=== PATIENT | male | born 1975 | race Caucasian/White ===

== ENCOUNTER 2020-02-23 13:44 | Emergency (ER) | payer BC ==
[~2020-02-23] VITALS: Ht 190.5 cm; Wt 139.0 kg
[~2020-02-23 13:44] MED LIST: LIDOcaine 1% W/epiNEPHrine 1:200,000 10ml vial ONE
[2020-02-23 17:21] VITALS: BP 147/101
== END 2020-02-23 17:17 | disposition home or self-care (01) ==
LOC: ER 13:45
DX: S61.212A Laceration without foreign body of right middle finger without damage to nail, initial encounter (principal); S61.214A Laceration without foreign body of right ring finger without damage to nail, initial encounter; W26.8XXA Contact with other sharp object(s), not elsewhere classified, initial encounter; Y93.89 Activity, other specified; Y92.89 Other specified places as the place of occurrence of the external cause; Y99.8 Other external cause status
CPT/HCPCS: 12002; 12042; 99283; 99284

== ENCOUNTER 2021-05-08 20:51 | Inpatient (IN) | payer BC ==
[~2021-05-08] VITALS: Ht 193 cm; Wt 170.4 kg
[2021-05-08] MEDS ORDERED: piperacillin/tazo 3.375gm/50ml 50 ML IV ONE (22:10)
[2021-05-08] MEDS ORDERED: vancomycin/NS 1 GM ADD-VANTAGE 250 ML IV ONE (22:10)
[2021-05-08] MEDS ORDERED: TETanus/Pertussis (Acell)/Diphther VAC/PF (Tdap-Adult) 0.5ml syringe IMVAC ONE (22:10)
[2021-05-08] MEDS ORDERED: NO HOME MEDS (22:39)
[2021-05-08 22:42] LABS: BASOPHILS # (AUTO) 0.1 X10'3 (0-0.2); BASOPHILS % (AUTO) 0.8 % (0-1); EOSINOPHILS # (AUTO) 0.2 X10'3 (0-0.9); EOSINOPHILS % (AUTO) 1.3 % (0-6); HEMATOCRIT 35.9 % (42.0-52.0); HEMOGLOBIN 12.6 g/dl (14.0-17.9); LYMPHOCYTES # (AUTO) 2.2 X10'3 (1.1-4.8); LYMPHOCYTES % (AUTO) 17.3 % (21-51); MEAN CORPUSCULAR HEMOGLOBIN 32.2 PG (27.0-31.0); MEAN PLATELET VOLUME 7.6 FL (7.4-10.4); MONOCYTES # (AUTO) 1.2 X10'3 (0-0.9); MONOCYTES % (AUTO) 9.6 % (2-12); NEUTROPHILS # (AUTO) 9.1 X10'3 (1.8-7.7); PLATELET COUNT 381 X10'3 (140-440); RED CELL DISTRIBUTION WIDTH 14.1 % (11.5-14.5); WHITE BLOOD COUNT 12.8 X10'3 (4.5-11.0)
[2021-05-08 22:52] LABS: ALANINE AMINOTRANSFERASE 21 U/L (12-78); ALBUMIN 3.6 G/DL (3.4-5.0); ALBUMIN/GLOBULIN RATIO 0.7 (1.1-1.5); ALKALINE PHOSPHATASE 98 IU/L (46-116); ANION GAP 10 (8-16); ASPARTATE AMINO TRANSFERASE 19 U/L (10-37); BILIRUBIN,TOTAL 0.7 MG/DL (0.1-1.0); BLOOD UREA NITROGEN 15 MG/DL (7-18); BUN/CREATININE RATIO 12.9 (5.4-32.0); CHLORIDE 104 MMOL/L (99-107); CREATININE 1.16 MG/DL (0.60-1.10); GLUCOSE 97 MG/DL (70-104); MAGNESIUM 2.4 MG/DL (1.5-2.4); POTASSIUM 3.3 MMOL/L (3.5-5.1); SODIUM 142 MMOL/L (135-145); TOTAL CARBON DIOXIDE 27.6 MMOL/L (24-32); TOTAL PROTEIN 8.8 G/DL (6.4-8.2); eGFR 68 ML/MIN
[2021-05-09] MEDS ORDERED: potassium Cl 20 mEq SR tablet PO PRN (02:55)
[2021-05-09] MEDS ORDERED: magnesium hydroxide 30ml (MOM) UD suspension PO PRN (02:55)
[2021-05-09] MEDS ORDERED: acetaminophen 325mg tablet PO PRN (02:55)
[2021-05-09] MEDS ORDERED: potassium Cl 40MEQ/1/2NS 520ml 520 ML IV PRN ×2 (02:55)
[2021-05-09] MEDS ORDERED: ondansetron/PF 4mg/2ml inj IV PRN (02:55)
[2021-05-09] MEDS ORDERED: HYDROcodone/acetaminophen 5mg/325mg tablet PO PRN (02:55)
[2021-05-09] MEDS ORDERED: mag hydrox/Alum hydrox/simeth 30ml oral suspension PO PRN (02:55)
[2021-05-09] MEDS ORDERED: vancomycin/NS 1 GM ADD-VANTAGE 250 ML IV SCH (06:00)
--- NOTE | 2021-05-09 06:43 | NUR ---
Pt. was alert and oriented with no stated needs at this time. Call light within reach.
[2021-05-09] MEDS: vancomycin/NS 1 GM ADD-VANTAGE 250 ML IV SCH ×2 (07:06→14:54)
[2021-05-09] MEDS: heparin, porcine 5000 units/ml vial SQ SCH ×2 (07:08→20:00)
[2021-05-09] MEDS: docusate sod 100mg capsule PO SCH ×2 (07:08→21:10)
[2021-05-09] MEDS: potassium Cl 20 mEq SR tablet PO PRN ×2 (07:12→16:42)
[2021-05-09] MEDS: K and/or MAG REPLACEMENT MC SCH ×2 (08:00→20:00)
--- NOTE | 2021-05-09 09:47 | NUR ---
PATIENT TO MRI.
[2021-05-09] MEDS: piperacillin/tazo 3.375gm/50ml 50 ML IV SCH ×2 (10:30→16:40)
--- NOTE | 2021-05-09 10:49 | NUR ---
VISITOR AT BEDSIDE.
--- NOTE | 2021-05-09 12:50 | NUR ---
DR. BURDEN AT BEDSIDE.
--- NOTE | 2021-05-09 12:54 | NUR ---
RIGHT FOOT WOUND PICTURE TAKEN.ORTHO CONSULT PER DR. BURDEN DUE TO OSTEOMYLELITIS.
[2021-05-09] MEDS ORDERED: COVID-19 VACC, MRNA(PFIZER)/PF--BNT162b2 syringe IMVAC ONE (14:35)
[2021-05-09] MEDS ORDERED: GADOTERATE MEGLUMINE 7.5 MMOL/15 ML VIAL IV ONE (15:29)
--- NOTE | 2021-05-09 17:31 | NUR ---
PATIENT PLACED IN A HOSPITAL BED.
--- NOTE | 2021-05-09 20:05 | NUR ---
CMP ORDERED FOR POTASSIUM REPLACEMENT PROTOCOL
[2021-05-09] MEDS: lactobacillus rhamnosus 10,000 MMU CELLS/CAPSULE PO SCH (21:10)
--- NOTE | 2021-05-09 21:14 | NUR ---
Pt was not given potassium as labs have not been drawn today. He recieved potassium PO in the am.
[2021-05-09 21:33] LABS: ALANINE AMINOTRANSFERASE 24 U/L (12-78); ALBUMIN/GLOBULIN RATIO 0.7 (1.1-1.5); ALKALINE PHOSPHATASE 87 IU/L (46-116); ANION GAP 11 (8-16); ASPARTATE AMINO TRANSFERASE 24 U/L (10-37); BILIRUBIN,TOTAL 0.6 MG/DL (0.1-1.0); BLOOD UREA NITROGEN 12 MG/DL (7-18); BUN/CREATININE RATIO 10.1 (5.4-32.0); CALCIUM 8.7 MG/DL (8.5-10.1); CHLORIDE 105 MMOL/L (99-107); CREATININE 1.19 MG/DL (0.60-1.10); GLUCOSE 95 MG/DL (70-104); POTASSIUM 3.9 MMOL/L (3.5-5.1); SODIUM 144 MMOL/L (135-145); TOTAL PROTEIN 7.6 G/DL (6.4-8.2); eGFR 66 ML/MIN
[2021-05-09 22:20] VITALS: BP 132/84
[2021-05-09] MEDS ORDERED: VANCOMYCIN LEVEL IV ONE (22:30)
[2021-05-10] VITALS (19 sets, daily range): BP systolic 122–159; BP diastolic 69–133
[2021-05-10] MEDS: vancomycin/NS 1 GM ADD-VANTAGE 250 ML IV SCH (00:08)
[2021-05-10] MEDS: piperacillin/tazo 3.375gm/50ml 50 ML IV SCH ×3 (02:14→18:21)
--- NOTE | 2021-05-10 06:41 | NUR ---
Patient in room [facility]. I have received report from LEANNA PENDLETON and had the opportunity to ask questions and assume patient care.
[2021-05-10 07:23] LABS: BASOPHILS # (AUTO) 0.1 X10'3 (0-0.2); BASOPHILS % (AUTO) 0.7 % (0-1); EOSINOPHILS # (AUTO) 0.3 X10'3 (0-0.9); EOSINOPHILS % (AUTO) 3.2 % (0-6); HEMATOCRIT 36.1 % (42.0-52.0); HEMOGLOBIN 12.4 g/dl (14.0-17.9); LYMPHOCYTES # (AUTO) 1.5 X10'3 (1.1-4.8); LYMPHOCYTES % (AUTO) 18.2 % (21-51); MEAN CORPUSCULAR HEMOGLOBIN 31.8 PG (27.0-31.0); MEAN CORPUSCULAR HGB CONC 34.4 g/dL (33.0-36.5); MEAN CORPUSCULAR VOLUME 92.7 FL (78-98); MEAN PLATELET VOLUME 7.9 FL (7.4-10.4); MONOCYTES # (AUTO) 0.8 X10'3 (0-0.9); NEUTROPHILS # (AUTO) 5.4 X10'3 (1.8-7.7); NEUTROPHILS % (AUTO) 67.9 % (42-75); PLATELET COUNT 356 X10'3 (140-440); RED BLOOD COUNT 3.89 X10'6 (4.70-6.10); RED CELL DISTRIBUTION WIDTH 14.3 % (11.5-14.5)
[2021-05-10 07:47] LABS: ALANINE AMINOTRANSFERASE 24 U/L (12-78); ALBUMIN 3.1 G/DL (3.4-5.0); ALBUMIN/GLOBULIN RATIO 0.7 (1.1-1.5); ALKALINE PHOSPHATASE 87 IU/L (46-116); ANION GAP 12 (8-16); ASPARTATE AMINO TRANSFERASE 24 U/L (10-37); BILIRUBIN,TOTAL 0.7 MG/DL (0.1-1.0); BLOOD UREA NITROGEN 9 MG/DL (7-18); BUN/CREATININE RATIO 9.2 (5.4-32.0); CALCIUM 9.1 MG/DL (8.5-10.1); CHLORIDE 106 MMOL/L (99-107); CREATININE 0.98 MG/DL (0.60-1.10); GLUCOSE 96 MG/DL (70-104); POTASSIUM 3.7 MMOL/L (3.5-5.1); SODIUM 143 MMOL/L (135-145); TOTAL CARBON DIOXIDE 25.4 MMOL/L (24-32); TOTAL PROTEIN 7.8 G/DL (6.4-8.2); eGFR 83 ML/MIN
[2021-05-10] MEDS: VANCOmycin 1250MG/NS 250ml Bag 250 ML IV SCH ×2 (08:00→16:36)
[2021-05-10] MEDS: heparin, porcine 5000 units/ml vial SQ SCH ×2 (08:00→20:45)
[2021-05-10] MEDS: K and/or MAG REPLACEMENT MC SCH ×2 (08:00→20:00)
[2021-05-10] MEDS: lactobacillus rhamnosus 10,000 MMU CELLS/CAPSULE PO SCH ×2 (08:43→20:59)
[2021-05-10] MEDS: docusate sod 100mg capsule PO SCH ×2 (08:43→20:44)
[2021-05-10] MEDS ORDERED: BUPIVAcaine/PF 2.5mg/ml (0.25%) 10ml vial ONE (10:18)
[2021-05-10] MEDS ORDERED: sevoflurane 250ml liquid IH ONE (10:30)
[2021-05-10] MEDS ORDERED: midazolam 1 mg/ML 2ml injection ONE (10:39)
[2021-05-10] MEDS ORDERED: fentaNYL /PF 50mcg/ml 5ml ampule ONE (10:41)
[2021-05-10] MEDS ORDERED: propofol inj 20 ML IV ONE (10:41)
[2021-05-10] MEDS ORDERED: LIDOcaine 2% (20mg/ml) 5ml vial ONE (10:41)
[2021-05-10] MEDS ORDERED: dexamethasone sod phosphate 4mg/ml inj. ONE (11:29)
--- NOTE | 2021-05-10 11:40 | NUR ---
Received from OR via BED, accompanied by Anesthesiologist RAJESH and report given by Anesthesiolgist. PT DROWSY, OXYGENATING WELL ON 10 LPM O2 VIA MASK,NO RESP DISTRESS NOTED. PT DENIES NAUSEA OR PAIN, HAD R ANKLE BLOCK. BULKY DSG WITH ALEJANDRO BANDAGE TO R FOOT, CDI. VSS.
--- NOTE | 2021-05-10 12:50 | NUR ---
Report called to receiving nurse. Transferred via BED Belongings IN PT ROOM. VSS, TOLERATING PO FLUIDS WELL. NO PAIN YET, PT WILL ASK FOR PAIN MEDS PRN. TRANSFERRED BACK TO ROOM 352 IN STABLE CONDITION. Special Issues communicated to receiving nurse.
[2021-05-10] MEDS: oxyCODONE/APAP 5-325mg tablet PO PRN ×2 (16:36→20:44)
--- NOTE | 2021-05-10 18:34 | NUR ---
Problems reprioritized. Patient report given, questions answered & plan of care reviewed with WILLIAM PENDLETON.
--- NOTE | 2021-05-10 18:35 | NUR ---
Patient in room [facility]. I have received report from LIV PENDLETON and had the opportunity to ask questions and assume patient care.
[2021-05-11] VITALS: BP 129/59
[2021-05-11] MEDS: VANCOmycin 1250MG/NS 250ml Bag 250 ML IV SCH ×2 (00:51→09:43)
[2021-05-11] MEDS: piperacillin/tazo 3.375gm/50ml 50 ML IV SCH ×3 (02:10→16:11)
--- NOTE | 2021-05-11 06:30 | NUR ---
Problems reprioritized. Patient report given, questions answered & plan of care reviewed with SUKHI PENDLETON.
[2021-05-11] MEDS ORDERED: VANCOMYCIN LEVEL IV ONE (07:30)
[2021-05-11 08:00] VITALS: BP 130/92
[2021-05-11] MEDS: K and/or MAG REPLACEMENT MC SCH ×2 (08:00→20:00)
[2021-05-11] MEDS: lactobacillus rhamnosus 10,000 MMU CELLS/CAPSULE PO SCH ×2 (09:43→20:04)
[2021-05-11] MEDS: oxyCODONE/APAP 5-325mg tablet PO PRN ×3 (09:43→19:55)
[2021-05-11] MEDS: heparin, porcine 5000 units/ml vial SQ SCH ×2 (09:44→19:56)
[2021-05-11] MEDS: docusate sod 100mg capsule PO SCH ×2 (09:45→19:55)
[2021-05-11 10:05] LABS: BASOPHILS % (AUTO) 0.2 % (0-1); EOSINOPHILS % (AUTO) 0.2 % (0-6); HEMATOCRIT 37.5 % (42.0-52.0); HEMOGLOBIN 13.1 g/dl (14.0-17.9); LYMPHOCYTES # (AUTO) 1.5 X10'3 (1.1-4.8); MEAN CORPUSCULAR HEMOGLOBIN 32.2 PG (27.0-31.0); MEAN CORPUSCULAR HGB CONC 34.9 g/dL (33.0-36.5); MEAN CORPUSCULAR VOLUME 92.2 FL (78-98); MEAN PLATELET VOLUME 7.2 FL (7.4-10.4); MONOCYTES # (AUTO) 0.5 X10'3 (0-0.9); MONOCYTES % (AUTO) 5.5 % (2-12); NEUTROPHILS # (AUTO) 7.7 X10'3 (1.8-7.7); NEUTROPHILS % (AUTO) 79.1 % (42-75); PLATELET COUNT 413 X10'3 (140-440); RED BLOOD COUNT 4.07 X10'6 (4.70-6.10); RED CELL DISTRIBUTION WIDTH 14.2 % (11.5-14.5); WHITE BLOOD COUNT 9.8 X10'3 (4.5-11.0)
[2021-05-11 10:20] LABS: ALANINE AMINOTRANSFERASE 26 U/L (12-78); ALBUMIN/GLOBULIN RATIO 0.6 (1.1-1.5); ALKALINE PHOSPHATASE 85 IU/L (46-116); ANION GAP 10 (8-16); ASPARTATE AMINO TRANSFERASE 18 U/L (10-37); BILIRUBIN,TOTAL 0.3 MG/DL (0.1-1.0); BLOOD UREA NITROGEN 10 MG/DL (7-18); BUN/CREATININE RATIO 8.5 (5.4-32.0); CALCIUM 9.1 MG/DL (8.5-10.1); CHLORIDE 105 MMOL/L (99-107); CREATININE 1.17 MG/DL (0.60-1.10); GLUCOSE 180 MG/DL (70-104); POTASSIUM 3.5 MMOL/L (3.5-5.1); SODIUM 143 MMOL/L (135-145); TOTAL CARBON DIOXIDE 27.6 MMOL/L (24-32); TOTAL PROTEIN 7.9 G/DL (6.4-8.2); eGFR 67 ML/MIN
[2021-05-11 11:00] VITALS: BP 136/83
--- NOTE | 2021-05-11 15:09 | NUR ---
PAGER ID: [phone] MESSAGE: [phone] Susan Capps is cleared by Dr. Decker for discharge home. Mary Carmen [phone]
[2021-05-11 18:00] VITALS: BP 144/86
--- NOTE | 2021-05-11 18:30 | NUR ---
Patient in room [facility]. I have received report from Almaz PENDLETON and had the opportunity to ask questions and assume patient care.
--- NOTE | 2021-05-11 18:52 | NUR ---
promotional table spacer promotional table spacer Page Sent promotional table spacer PAGER ID: [phone] MESSAGE: [phone] Jefry is anxious to go home. Surgeon has okayed, but with Po ABX. please call Kerri Dougherty02Estefania ferrell (107 character message out of a maximum of [phone]) Close [X] Send Another Page Thank you for visiting [facility] promotional table spacer promotional table spacer
[2021-05-12] VITALS: BP 134/87
[2021-05-12] MEDS: piperacillin/tazo 3.375gm/50ml 50 ML IV SCH ×2 (01:36→07:25)
--- NOTE | 2021-05-12 06:15 | NUR ---
Patient in room [facility]. I have received report from Kerri and had the opportunity to ask questions and assume patient care.
--- NOTE | 2021-05-12 06:30 | NUR ---
Problems reprioritized. Patient report given, questions answered & plan of care reviewed with Debra PENDLETON.
--- NOTE | 2021-05-12 06:42 | NUR ---
Patient in room [facility]. I have received report from Kerri PENDLETON and had the opportunity to ask questions and assume patient care.
[2021-05-12 06:44] LABS: BASOPHILS # (AUTO) 0.1 X10'3 (0-0.2); BASOPHILS % (AUTO) 1.1 % (0-1); EOSINOPHILS # (AUTO) 0.2 X10'3 (0-0.9); EOSINOPHILS % (AUTO) 1.7 % (0-6); HEMATOCRIT 37.3 % (42.0-52.0); HEMOGLOBIN 12.6 g/dl (14.0-17.9); LYMPHOCYTES # (AUTO) 2.3 X10'3 (1.1-4.8); LYMPHOCYTES % (AUTO) 26.5 % (21-51); MEAN CORPUSCULAR HEMOGLOBIN 31.3 PG (27.0-31.0); MEAN CORPUSCULAR HGB CONC 33.6 g/dL (33.0-36.5); MEAN CORPUSCULAR VOLUME 93.2 FL (78-98); MEAN PLATELET VOLUME 7.6 FL (7.4-10.4); MONOCYTES # (AUTO) 1.2 X10'3 (0-0.9); MONOCYTES % (AUTO) 13.2 % (2-12); NEUTROPHILS # (AUTO) 5.1 X10'3 (1.8-7.7); NEUTROPHILS % (AUTO) 57.5 % (42-75); PLATELET COUNT 397 X10'3 (140-440); RED BLOOD COUNT 4.01 X10'6 (4.70-6.10); WHITE BLOOD COUNT 8.8 X10'3 (4.5-11.0)
[2021-05-12 07:00] VITALS: BP 141/84
[2021-05-12 07:28] LABS: ALANINE AMINOTRANSFERASE 34 U/L (12-78); ALBUMIN 2.8 G/DL (3.4-5.0); ALBUMIN/GLOBULIN RATIO 0.6 (1.1-1.5); ALKALINE PHOSPHATASE 75 IU/L (46-116); ANION GAP 10 (8-16); ASPARTATE AMINO TRANSFERASE 31 U/L (10-37); BILIRUBIN,TOTAL 0.3 MG/DL (0.1-1.0); BLOOD UREA NITROGEN 13 MG/DL (7-18); CALCIUM 9.1 MG/DL (8.5-10.1); CHLORIDE 109 MMOL/L (99-107); GLUCOSE 86 MG/DL (70-104); POTASSIUM 3.7 MMOL/L (3.5-5.1); SODIUM 146 MMOL/L (135-145); TOTAL CARBON DIOXIDE 26.9 MMOL/L (24-32); TOTAL PROTEIN 7.2 G/DL (6.4-8.2); eGFR 60 ML/MIN
[2021-05-12] MEDS: heparin, porcine 5000 units/ml vial SQ SCH (08:57)
[2021-05-12] MEDS: docusate sod 100mg capsule PO SCH (08:57)
[2021-05-12] MEDS: lactobacillus rhamnosus 10,000 MMU CELLS/CAPSULE PO SCH (08:57)
[2021-05-12] MEDS ORDERED: LEVO750T46 PO (09:30)
[2021-05-12] MEDS ORDERED: OXYC-145 PO (09:30)
[2021-05-12] MEDS ORDERED: METR-159 PO (09:30)
[2021-05-12 10:21] VITALS: BP 157/93
--- NOTE | 2021-05-12 11:20 | NUR ---
Discharge patient home. Discharge instructions given to patient. Patient verbalized understanding of all instructions given. Peripheral IV catheter removed, tip intact. Dressing on the right foot changed prior to discharge, sutures were intact, no drainage at the site. Xerofoam dressing applied after cleansing the site, wrapped with Kerlix then secured with john bandage. Signs and symptoms to watch for was discussed with the patient. Girlfriend present at bedside. New prescriptions were e-sent to pharmacy of choice. Advised patient to follow up with Dr. Decker and [facility] wound clinic. Patient aware of the pending authorization at this time. warehouse delivery manager Kim arranged home health service.
[2021-05-12] MEDS ORDERED: VANCOMYCIN LEVEL IV ONE (15:30)
== END 2021-05-12 11:20 | disposition home health service (06) | DRG 504 ==
LOC: ER 20:52 → ED HOLD 05-09 02:56 → SUR 3N 05-09 22:29
PROVIDERS: ADMIT Internal Medicine; ATTEND Internal Medicine
PROC: 3E0234Z Introduction of Serum, Toxoid and Vaccine into Muscle, Percutaneous Approach (ICD-10-PCS; 2021-05-08)
PROC: XW023U6 Introduction of COVID-19 Vaccine into Muscle, Percutaneous Approach, New Technology Group 6 (ICD-10-PCS; 2021-05-09)
PROC: 3E0T3BZ Introduction of Anesthetic Agent into Peripheral Nerves and Plexi, Percutaneous Approach (ICD-10-PCS; 2021-05-10)
PROC: 3E0T33Z Introduction of Anti-inflammatory into Peripheral Nerves and Plexi, Percutaneous Approach (ICD-10-PCS; 2021-05-10)
PROC: 0Y6R0Z0 Detachment at Right 2nd Toe, Complete, Open Approach (ICD-10-PCS; principal; 2021-05-10 10:30)
DX: M86.171 Other acute osteomyelitis, right ankle and foot (principal); L02.611 Cutaneous abscess of right foot; L03.115 Cellulitis of right lower limb; Z68.42 Body mass index [BMI] 45.0-49.9, adult; E87.6 Hypokalemia; L97.512 Non-pressure chronic ulcer of other part of right foot with fat layer exposed; K21.9 Gastro-esophageal reflux disease without esophagitis; E66.01 Morbid (severe) obesity due to excess calories; F10.20 Alcohol dependence, uncomplicated; N18.30 Chronic kidney disease, stage 3 unspecified; S91.331A Puncture wound without foreign body, right foot, initial encounter; W45.0XXA Nail entering through skin, initial encounter; Z98.84 Bariatric surgery status; Z23 Encounter for immunization; Y92.89 Other specified places as the place of occurrence of the external cause
CPT/HCPCS: 96365; 96366; 96375; 99285; Z7506; Z7508; 0001A; 36415; 73620; 73720; 80053; 80202; 82948; 83605; 83735; 84145; 85025; 85651; 87040; 87081; 87635; 90471; 90715; 91300; 93971; A4618; A6222; A6446; A6449; A7000; A9575; G0378; J1100; J1644; J2001; J2250; J2543; J2704; J3010; J3370; J3490; J7120

== ENCOUNTER 2021-06-14 04:27 | Inpatient (IN) | payer BC ==
[~2021-06-14] VITALS: Ht 193 cm; Wt 125.0 kg
[~2021-06-14 04:27] MED LIST changes: -LIDOcaine 1% W/epiNEPHrine 1:200,000 10ml vial ONE; +OXYC-145 PO
[2021-06-14] MEDS ORDERED: piperacillin/tazo 4.5gm/100ml 100 ML IV ONE (04:55)
[2021-06-14 05:35] LABS: BASOPHILS # (AUTO) 0.1 X10'3 (0-0.2); EOSINOPHILS # (AUTO) 0.3 X10'3 (0-0.9); EOSINOPHILS % (AUTO) 2.4 % (0-6); HEMATOCRIT 37.9 % (42.0-52.0); HEMOGLOBIN 12.9 g/dl (14.0-17.9); LYMPHOCYTES # (AUTO) 1.7 X10'3 (1.1-4.8); LYMPHOCYTES % (AUTO) 16.2 % (21-51); MEAN CORPUSCULAR HEMOGLOBIN 30.9 PG (27.0-31.0); MEAN CORPUSCULAR HGB CONC 34.1 g/dL (33.0-36.5); MEAN CORPUSCULAR VOLUME 90.8 FL (78-98); MEAN PLATELET VOLUME 7.5 FL (7.4-10.4); MONOCYTES # (AUTO) 0.9 X10'3 (0-0.9); MONOCYTES % (AUTO) 8.8 % (2-12); NEUTROPHILS # (AUTO) 7.7 X10'3 (1.8-7.7); NEUTROPHILS % (AUTO) 71.6 % (42-75); PLATELET COUNT 310 X10'3 (140-440); RED BLOOD COUNT 4.18 X10'6 (4.70-6.10); RED CELL DISTRIBUTION WIDTH 14.3 % (11.5-14.5); WHITE BLOOD COUNT 10.7 X10'3 (4.5-11.0)
[2021-06-14 05:43] LABS: ALANINE AMINOTRANSFERASE 18 U/L (12-78); ALBUMIN 2.9 G/DL (3.4-5.0); ALBUMIN/GLOBULIN RATIO 0.6 (1.1-1.5); ALKALINE PHOSPHATASE 64 IU/L (46-116); ANION GAP 9 (8-16); ASPARTATE AMINO TRANSFERASE 18 U/L (10-37); BILIRUBIN,TOTAL 0.5 MG/DL (0.1-1.0); BLOOD UREA NITROGEN 20 MG/DL (7-18); BUN/CREATININE RATIO 17.9 (5.4-32.0); C-REACTIVE PROTEIN 12.09 MG/DL (0.0-0.5); CALCIUM 8.4 MG/DL (8.5-10.1); CHLORIDE 108 MMOL/L (99-107); CREATININE 1.12 MG/DL (0.60-1.10); GLUCOSE 101 MG/DL (70-104); POTASSIUM 3.6 MMOL/L (3.5-5.1); SODIUM 143 MMOL/L (135-145); TOTAL CARBON DIOXIDE 26.3 MMOL/L (24-32); TOTAL PROTEIN 7.7 G/DL (6.4-8.2); eGFR 71 ML/MIN
[2021-06-14] MEDS ORDERED: bisacodyl 10mg suppository rectal RC PRN (07:45)
[2021-06-14] MEDS ORDERED: potassium Cl 20 mEq SR tablet PO PRN (07:45)
[2021-06-14] MEDS ORDERED: morphine 2 MG/ML inj. syringe IV PRN ×2 (07:45)
[2021-06-14] MEDS ORDERED: mag hydrox/Alum hydrox/simeth 30ml oral suspension PO PRN (07:45)
[2021-06-14] MEDS ORDERED: magnesium hydroxide 30ml (MOM) UD suspension PO PRN (07:45)
[2021-06-14] MEDS ORDERED: ondansetron/PF 4mg/2ml inj IV PRN (07:45)
[2021-06-14] MEDS ORDERED: acetaminophen 325mg tablet PO PRN ×2 (07:45)
[2021-06-14] MEDS ORDERED: magnesium Cl slow-release 64mg tablet PO PRN (07:45)
[2021-06-14] MEDS ORDERED: magnesium 4gm in 100ml NS 100 ML IV PRN (07:45)
[2021-06-14] MEDS ORDERED: magnesium 2GM in 50ml NS 50 ML IV PRN (07:45)
[2021-06-14] MEDS ORDERED: acetaminophen 650mg rectal suppository RC PRN (07:45)
[2021-06-14] MEDS ORDERED: potassium Cl 40MEQ/1/2NS 520ml 520 ML IV PRN ×2 (07:45)
[2021-06-14] MEDS ORDERED: HYDROcodone/acetaminophen 5mg/325mg tablet PO PRN (07:45)
[2021-06-14] MEDS ORDERED: diphenhydrAMINE 25mg capsule PO PRN (07:45)
[2021-06-14] MEDS: K and/or MAG REPLACEMENT MC SCH ×2 (08:00→20:00)
[2021-06-14] MEDS ORDERED: morphine 4 MG/ML inj SYRINge IV ONE ×2 (08:05→12:55)
[2021-06-14] MEDS: heparin, porcine 5000 units/ml vial SQ SCH ×2 (09:16→20:53)
[2021-06-14] MEDS: docusate sod 100mg capsule PO SCH ×2 (09:16→20:52)
[2021-06-14 10:00] LABS: HEMOGLOBIN A1C 5.4 % (4.5-6.2)
[2021-06-14] MEDS ORDERED: CLIN150C2 PO (11:48)
[2021-06-14] MEDS: normal saline 1000ml 1,000 ML IV SCH ×2 (12:03→20:51)
[2021-06-14] MEDS: HYDROcodone/acetaminophen 10/325mg tab PO PRN ×3 (12:57→20:54)
[2021-06-14 13:25] LABS: CLARITY,URINE CLEAR (Clear); COLOR,URINE YELLOW (Yellow); GLUCOSE, URINE NEGATIVE (Neg); KETONES,URINE NEGATIVE (Neg); LEUKOCYTE ESTERASE ,URINE NEGATIVE (Neg); NITRITES, URINE NEGATIVE (Neg); OCCULT BLOOD,URINE NEGATIVE (Neg); PH,URINE 5.5 (4.8-8.0); PROTEIN,URINE NEGATIVE (Neg); UA COLLECTION TYPE VOIDED; UROBILINOGEN,URINE 0.2 E.U/dL (0.2-1.0)
[2021-06-14] MEDS: piperacillin/tazo 3.375gm/50ml 50 ML IV SCH (15:45)
--- NOTE | 2021-06-14 16:07 | NUR ---
Report given to KEERTHI Cook on the Surgical Floor.
[2021-06-14] MEDS ORDERED: hydrALAZINE 20mg/ml inj. IV PRN (16:15)
[2021-06-14] MEDS ORDERED: hydrALAZINE 20mg/ml inj. IV ONE (16:15)
[2021-06-14] MEDS: VANCOmycin 1250MG/NS 250ml Bag 250 ML IV SCH (17:07)
[2021-06-14] MEDS: amLODIPine 5mg tablet PO SCH (17:11)
[2021-06-14] MEDS: lactobacillus rhamnosus 10,000 MMU CELLS/CAPSULE PO SCH (20:52)
[2021-06-14 22:53] VITALS: BP 152/89
[2021-06-15] VITALS (18 sets, daily range): BP systolic 135–154; BP diastolic 81–95
[2021-06-15] MEDS: piperacillin/tazo 3.375gm/50ml 50 ML IV SCH ×4 (00:10→23:29)
[2021-06-15] MEDS: normal saline 1000ml 1,000 ML IV SCH ×3 (03:45→16:39)
[2021-06-15] MEDS: VANCOmycin 1250MG/NS 250ml Bag 250 ML IV SCH ×2 (04:51→16:30)
--- NOTE | 2021-06-15 05:25 | NUR ---
Student documentation: I have reviewed and agree with all interventions, assessments performed and documented by [Jared KIRBY]. Student Medication Administration: For this medication-pass time frame, all medication were reviewed, dispensed, administered and documented per hospital policy by [Jared KIRBY].
--- NOTE | 2021-06-15 06:13 | NUR ---
Problems reprioritized. Patient report given, questions answered & plan of care reviewed with
--- NOTE | 2021-06-15 06:27 | NUR ---
Problems reprioritized. Patient report given, questions answered & plan of care reviewed with Orly PENDLETON. Addendum: 06/15/21 at 0627 by Kathryn Diallo RN Amended: Links added.
[2021-06-15 06:40] LABS: BASOPHILS % (AUTO) 0.4 % (0-1); EOSINOPHILS # (AUTO) 0.1 X10'3 (0-0.9); EOSINOPHILS % (AUTO) 0.9 % (0-6); HEMATOCRIT 34.3 % (42.0-52.0); LYMPHOCYTES # (AUTO) 2.5 X10'3 (1.1-4.8); LYMPHOCYTES % (AUTO) 19.3 % (21-51); MEAN CORPUSCULAR HEMOGLOBIN 31.3 PG (27.0-31.0); MEAN CORPUSCULAR HGB CONC 34.8 g/dL (33.0-36.5); MEAN PLATELET VOLUME 7.9 FL (7.4-10.4); MONOCYTES # (AUTO) 1.3 X10'3 (0-0.9); MONOCYTES % (AUTO) 10.4 % (2-12); NEUTROPHILS # (AUTO) 8.8 X10'3 (1.8-7.7); PLATELET COUNT 364 X10'3 (140-440); RED BLOOD COUNT 3.81 X10'6 (4.70-6.10); RED CELL DISTRIBUTION WIDTH 14.4 % (11.5-14.5); WHITE BLOOD COUNT 12.8 X10'3 (4.5-11.0)
[2021-06-15 06:49] LABS: ALANINE AMINOTRANSFERASE 18 U/L (12-78); ALBUMIN/GLOBULIN RATIO 0.7 (1.1-1.5); ALKALINE PHOSPHATASE 68 IU/L (46-116); ANION GAP 9 (8-16); ASPARTATE AMINO TRANSFERASE 16 U/L (10-37); BILIRUBIN,TOTAL 0.7 MG/DL (0.1-1.0); BLOOD UREA NITROGEN 9 MG/DL (7-18); BUN/CREATININE RATIO 9.1 (5.4-32.0); CALCIUM 8.5 MG/DL (8.5-10.1); CHLORIDE 102 MMOL/L (99-107); CHOL/HDL RATIO 4.7 (0.00-4.99); CHOLESTEROL 141 MG/DL (0-200); CREATININE 0.99 MG/DL (0.60-1.10); GLUCOSE 105 MG/DL (70-104); HDL CHOLESTEROL 30 MG/DL (35-60); LDL CHOLESTEROL 87 MG/DL (50-100); MAGNESIUM 1.9 MG/DL (1.5-2.4); PHOSPHORUS 3.6 MG/DL (2.3-4.5); POTASSIUM 3.4 MMOL/L (3.5-5.1); SODIUM 138 MMOL/L (135-145); TOTAL CARBON DIOXIDE 26.8 MMOL/L (24-32); TOTAL PROTEIN 7.4 G/DL (6.4-8.2); TRIGLYCERIDES 87 MG/DL (20-135); eGFR 82 ML/MIN
[2021-06-15] MEDS: heparin, porcine 5000 units/ml vial SQ SCH ×2 (06:53→21:05)
--- NOTE | 2021-06-15 07:19 | NUR ---
patient has been taken to OR
[2021-06-15] MEDS ORDERED: BUPIVAcaine 0.5% inj/PF 30 ML ONE (07:24)
[2021-06-15] MEDS ORDERED: fentaNYL/PF 50MCG/1 ML 2ML syringe ONE ×2 (07:26→07:48)
[2021-06-15] MEDS ORDERED: ketamine 50mg/5ml syringe ONE (07:26)
[2021-06-15] MEDS ORDERED: MIDAZolam 1 MG/ML 5ML VIAL ONE (07:26)
[2021-06-15] MEDS ORDERED: ondansetron/PF 4mg/2ml inj ONE (07:31)
[2021-06-15] MEDS ORDERED: sevoflurane 250ml liquid IH ONE (07:31)
[2021-06-15] MEDS ORDERED: labetalol 20mg/4ml (5mg/ml) syringe IV ONE (07:31)
[2021-06-15] MEDS: K and/or MAG REPLACEMENT MC SCH ×2 (08:00→20:00)
[2021-06-15] MEDS ORDERED: succinylcholine 20mg/ml inj IV ONE (08:17)
[2021-06-15] MEDS ORDERED: propofol inj 20 ML IV ONE (08:17)
[2021-06-15] MEDS ORDERED: LIDOcaine 2% (20mg/ml) 5ml vial ONE (08:17)
--- NOTE | 2021-06-15 08:20 | NUR ---
Received from OR via , accompanied by Anesthesiologist DR MENDENHALL and report given by Anesthesiolgist. PT PRESENTS WITH 20G RIGHT AC, WOUND VAC ON RIGHT FOOT 2ND DIGIT. VSS. Addendum: 06/15/21 at 0833 by Jazmin Camarena RN, RN Amended: Links added.
[2021-06-15] MEDS ORDERED: meperidine/PF 25mg/ml syringe IV PRN ×3 (08:30)
[2021-06-15] MEDS ORDERED: morphine 2 MG/ML inj. syringe IV PRN (08:30)
[2021-06-15] MEDS ORDERED: proCHLORperazine 10 MG/2 ml inj IV PRN (08:30)
[2021-06-15] MEDS ORDERED: morphine 4 MG/ML inj SYRINge IV PRN (08:30)
[2021-06-15] MEDS ORDERED: ringers solution, lacted 1,000 ML IV SCH (08:30)
[2021-06-15] MEDS ORDERED: ondansetron/PF 4mg/2ml inj IV PRN (08:30)
--- NOTE | 2021-06-15 09:20 | NUR ---
Report called to receiving nurse TAN PENDLETON. Transferred via HOSPITAL BED, PT Belongings WERE LEFT IN ROOM 352. TAN PENDLETON AT BEDSIDE TO GREET PT. BED LOCKED AND IN LOW POSITION, CALL LIGHT GIVEN TO PT. . Special Issues communicated to receiving nurse. Addendum: 06/15/21 at 0933 by Jazmin Camarena RN RN Amended: Links added.
[2021-06-15] MEDS: docusate sod 100mg capsule PO SCH ×2 (09:33→20:00)
[2021-06-15] MEDS: amLODIPine 5mg tablet PO SCH (09:34)
[2021-06-15] MEDS: potassium Cl 20 mEq SR tablet PO PRN ×3 (09:34→22:54)
[2021-06-15] MEDS: lactobacillus rhamnosus 10,000 MMU CELLS/CAPSULE PO SCH ×2 (09:34→21:03)
[2021-06-15] MEDS ORDERED: clindamycin 150mg capsule PO SCH (13:00)
[2021-06-15] MEDS: HYDROcodone/acetaminophen 10/325mg tab PO PRN ×2 (14:31→21:16)
[2021-06-15] MEDS: clindamycin 150mg capsule PO SCH ×2 (18:00→21:03)
--- NOTE | 2021-06-15 19:09 | NUR ---
report given to Niraj PENDLETON. patient awake in bed, no signs of distress. all questions answered
[2021-06-16] VITALS: BP 140/84
[2021-06-16] MEDS ORDERED: VANCOMYCIN LEVEL IV ONE (04:30)
[2021-06-16] MEDS: VANCOmycin 1250MG/NS 250ml Bag 250 ML IV SCH ×3 (04:50→20:33)
--- NOTE | 2021-06-16 06:52 | NUR ---
Patient in room [facility]. I have received report from Niraj Morales and had the opportunity to ask questions and assume patient care.
--- NOTE | 2021-06-16 06:55 | NUR ---
Problems reprioritized. Patient report given, questions answered & plan of care reviewed with RAFAT. Addendum: 06/16/21 at 0655 by Clarence Diaz RN Amended: Links added.
--- NOTE | 2021-06-16 06:56 | NUR ---
Patient in room [facility]. I have received report from Keerthi and had the opportunity to ask questions and assume patient care.
[2021-06-16 07:11] LABS: ALANINE AMINOTRANSFERASE 22 U/L (12-78); ALBUMIN 2.8 G/DL (3.4-5.0); ALBUMIN/GLOBULIN RATIO 0.7 (1.1-1.5); ALKALINE PHOSPHATASE 64 IU/L (46-116); ANION GAP 8 (8-16); ASPARTATE AMINO TRANSFERASE 18 U/L (10-37); BILIRUBIN,TOTAL 0.6 MG/DL (0.1-1.0); BLOOD UREA NITROGEN 8 MG/DL (7-18); BUN/CREATININE RATIO 7.9 (5.4-32.0); CALCIUM 8.8 MG/DL (8.5-10.1); CHLORIDE 107 MMOL/L (99-107); CREATININE 1.01 MG/DL (0.60-1.10); GLUCOSE 91 MG/DL (70-104); MAGNESIUM 2.1 MG/DL (1.5-2.4); PHOSPHORUS 4.3 MG/DL (2.3-4.5); POTASSIUM 4.1 MMOL/L (3.5-5.1); SODIUM 143 MMOL/L (135-145); TOTAL CARBON DIOXIDE 28.2 MMOL/L (24-32); TOTAL PROTEIN 6.9 G/DL (6.4-8.2); VANCOMYCIN,TROUGH 8.7 UG/ML (6.0-14.0); eGFR 80 ML/MIN
[2021-06-16] MEDS: docusate sod 100mg capsule PO SCH ×2 (07:25→20:32)
[2021-06-16] MEDS: lactobacillus rhamnosus 10,000 MMU CELLS/CAPSULE PO SCH ×2 (07:26→20:32)
[2021-06-16 07:27] VITALS: BP 130/70
[2021-06-16] MEDS: amLODIPine 5mg tablet PO SCH (07:27)
[2021-06-16] MEDS: clindamycin 150mg capsule PO SCH (07:28)
[2021-06-16] MEDS: heparin, porcine 5000 units/ml vial SQ SCH ×2 (07:31→20:31)
[2021-06-16] MEDS: K and/or MAG REPLACEMENT MC SCH ×2 (08:00→20:00)
[2021-06-16 08:07] LABS: BASOPHILS # (AUTO) 0.1 X10'3 (0-0.2); BASOPHILS % (AUTO) 0.5 % (0-1); EOSINOPHILS # (AUTO) 0.1 X10'3 (0-0.9); EOSINOPHILS % (AUTO) 1.4 % (0-6); HEMATOCRIT 36.2 % (42.0-52.0); HEMOGLOBIN 12.4 g/dl (14.0-17.9); LYMPHOCYTES # (AUTO) 2.3 X10'3 (1.1-4.8); LYMPHOCYTES % (AUTO) 22.7 % (21-51); MEAN CORPUSCULAR HGB CONC 34.3 g/dL (33.0-36.5); MEAN CORPUSCULAR VOLUME 90.4 FL (78-98); MEAN PLATELET VOLUME 7.3 FL (7.4-10.4); MONOCYTES # (AUTO) 1.1 X10'3 (0-0.9); NEUTROPHILS # (AUTO) 6.4 X10'3 (1.8-7.7); NEUTROPHILS % (AUTO) 64.4 % (42-75); PLATELET COUNT 378 X10'3 (140-440); RED BLOOD COUNT 4.01 X10'6 (4.70-6.10); RED CELL DISTRIBUTION WIDTH 14.2 % (11.5-14.5)
[2021-06-16] MEDS: piperacillin/tazo 3.375gm/50ml 50 ML IV SCH (08:15)
[2021-06-16] MEDS: HYDROcodone/acetaminophen 10/325mg tab PO PRN ×3 (08:16→20:32)
--- NOTE | 2021-06-16 10:10 | NUR ---
Paged PICC RN for PICC placement
[2021-06-16 11:00] VITALS: BP 130/85
--- NOTE | 2021-06-16 11:01 | NUR ---
INSTRUCTOR, I REVIEWED STUDENT NURSE DOCUMENTATION
--- NOTE | 2021-06-16 11:19 | NUR ---
Problems reprioritized. Patient report given, questions answered & plan of care reviewed with KEERTHI Pendleton.
--- NOTE | 2021-06-16 12:09 | NUR ---
Patient in room [facility]. I have received report from Keerthi PENDLETON and had the opportunity to ask questions and assume patient care.
--- NOTE | 2021-06-16 15:22 | NUR ---
WOUND VAC EDUCATION PROVIDED BY WOUND CARE 1. Patient instructed to call the Wound Center or their Home Health Agency immediately if: * They notice a change in the color or amount of the fluid in the canister. * Their wound looks more red than usual or has a foul smell. * The skin around their wound looks reddened or irritated. * The dressing feels loose or appears to be loose. * They experience any increase or changes in their pain. * The alarm will not turn off. 2. Patient instructed that they should not be disconnected from suction for more than 2 hours at a time. * If they are not able to get the suction back on, they need to remove the dressing and take all of the foam out of the wound. * Then moisten sterile gauze with normal saline and place on/in the wound. * Change the dressing once a day until arrangements have been made to replace the wound vac dressing. 3. Patient instructed to turn the wound vac machine OFF and call 911 or go to the ED immediately if their canister fills rapidly with blood. 4. If any of these occur while in the hospital tell a nurse immediately. Addendum: 06/16/21 at 1522 by Shari Stevens RN Amended: Links added.
--- NOTE | 2021-06-16 16:47 | NUR ---
as clinical instructor, i reviewed student documentation
--- NOTE | 2021-06-16 17:51 | NUR ---
Problems reprioritized. Patient report given, questions answered & plan of care reviewed with Keerthi PENDLETON.
--- NOTE | 2021-06-16 18:14 | NUR ---
Patient in room [facility]. I have received report from KEERTHI Gunn and had the opportunity to ask questions and assume patient care.
--- NOTE | 2021-06-16 18:14 | NUR ---
Patient in room [facility]. I have received report from Keerthi and had the opportunity to ask questions and assume patient care.
--- NOTE | 2021-06-16 18:16 | NUR ---
Problems reprioritized. Patient report given, questions answered & plan of care reviewed with Arleen Morales.
[2021-06-16 22:04] VITALS: BP 145/93
[2021-06-17] VITALS: BP 138/91
[2021-06-17] MEDS ORDERED: VANCOMYCIN LEVEL IV ONE (04:30)
[2021-06-17] MEDS: VANCOmycin 1250MG/NS 250ml Bag 250 ML IV SCH ×2 (04:44→13:46)
--- NOTE | 2021-06-17 05:51 | NUR ---
Student documentation: I have reviewed and agree with all interventions, assessments performed and documented by Asya Tucker.
--- NOTE | 2021-06-17 06:00 | NUR ---
Patient in room [facility]. I have received report from KEERTHI Bacon and had the opportunity to ask questions and assume patient care.
[2021-06-17 06:07] LABS: ALANINE AMINOTRANSFERASE 30 U/L (12-78); ALBUMIN 2.9 G/DL (3.4-5.0); ALBUMIN/GLOBULIN RATIO 0.6 (1.1-1.5); ALKALINE PHOSPHATASE 66 IU/L (46-116); ANION GAP 8 (8-16); ASPARTATE AMINO TRANSFERASE 28 U/L (10-37); BILIRUBIN,TOTAL 0.4 MG/DL (0.1-1.0); BLOOD UREA NITROGEN 10 MG/DL (7-18); CALCIUM 9.3 MG/DL (8.5-10.1); CHLORIDE 105 MMOL/L (99-107); GLUCOSE 85 MG/DL (70-104); MAGNESIUM 2.2 MG/DL (1.5-2.4); PHOSPHORUS 4.2 MG/DL (2.3-4.5); POTASSIUM 3.7 MMOL/L (3.5-5.1); SODIUM 142 MMOL/L (135-145); TOTAL PROTEIN 7.7 G/DL (6.4-8.2); VANCOMYCIN,TROUGH 17.3 UG/ML (6.0-14.0); eGFR 81 ML/MIN
--- NOTE | 2021-06-17 06:22 | NUR ---
Problems reprioritized. Patient report given, questions answered & plan of care reviewed with KEERTHI Jefferson.
--- NOTE | 2021-06-17 06:23 | NUR ---
Problems reprioritized. Patient report given, questions answered & plan of care reviewed with Raymundo
[2021-06-17 07:00] VITALS: BP 145/93
[2021-06-17 07:11] LABS: BASOPHILS # (AUTO) 0.1 X10'3 (0-0.2); BASOPHILS % (AUTO) 0.8 % (0-1); EOSINOPHILS # (AUTO) 0.2 X10'3 (0-0.9); EOSINOPHILS % (AUTO) 3.2 % (0-6); HEMATOCRIT 36.3 % (42.0-52.0); HEMOGLOBIN 12.4 g/dl (14.0-17.9); LYMPHOCYTES # (AUTO) 2.1 X10'3 (1.1-4.8); LYMPHOCYTES % (AUTO) 30.2 % (21-51); MEAN CORPUSCULAR HEMOGLOBIN 30.7 PG (27.0-31.0); MEAN CORPUSCULAR HGB CONC 34.3 g/dL (33.0-36.5); MEAN CORPUSCULAR VOLUME 89.7 FL (78-98); MEAN PLATELET VOLUME 7.3 FL (7.4-10.4); MONOCYTES # (AUTO) 0.8 X10'3 (0-0.9); NEUTROPHILS # (AUTO) 3.9 X10'3 (1.8-7.7); NEUTROPHILS % (AUTO) 54.8 % (42-75); PLATELET COUNT 363 X10'3 (140-440); RED BLOOD COUNT 4.04 X10'6 (4.70-6.10); RED CELL DISTRIBUTION WIDTH 13.9 % (11.5-14.5); WHITE BLOOD COUNT 7.1 X10'3 (4.5-11.0)
--- NOTE | 2021-06-17 07:31 | NUR ---
Patient in room [facility]. I have received report from Arleen PENDLETON and had the opportunity to ask questions and assume patient care.
[2021-06-17] MEDS: K and/or MAG REPLACEMENT MC SCH (08:00)
--- NOTE | 2021-06-17 08:00 | NUR ---
Student documentation: I have reviewed and agree with all interventions, assessments performed and documented by Kathryn [facility] Student.
[2021-06-17] MEDS: heparin, porcine 5000 units/ml vial SQ SCH (09:37)
[2021-06-17] MEDS: lactobacillus rhamnosus 10,000 MMU CELLS/CAPSULE PO SCH (09:40)
[2021-06-17] MEDS: amLODIPine 5mg tablet PO SCH (09:40)
[2021-06-17] MEDS: docusate sod 100mg capsule PO SCH (09:40)
[2021-06-17] MEDS: HYDROcodone/acetaminophen 10/325mg tab PO PRN (09:43)
[2021-06-17 11:00] VITALS: BP 139/95
[2021-06-17] MEDS ORDERED: HYDR-3965 PO (14:29)
[2021-06-17] MEDS ORDERED: NOR5T PO (14:29)
[2021-06-17] MEDS ORDERED: LACT1CAP26 PO (14:29)
--- NOTE | 2021-06-17 14:46 | NUR ---
WOUND VAC EDUCATION PROVIDED BY WOUND CARE 1. Patient instructed to call the Wound Center or their Home Health Agency immediately if: * They notice a change in the color or amount of the fluid in the canister. * Their wound looks more red than usual or has a foul smell. * The skin around their wound looks reddened or irritated. * The dressing feels loose or appears to be loose. * They experience any increase or changes in their pain. * The alarm will not turn off. 2. Patient instructed that they should not be disconnected from suction for more than 2 hours at a time. * If they are not able to get the suction back on, they need to remove the dressing and take all of the foam out of the wound. * Then moisten sterile gauze with normal saline and place on/in the wound. * Change the dressing once a day until arrangements have been made to replace the wound vac dressing. 3. Patient instructed to turn the wound vac machine OFF and call 911 or go to the ED immediately if their canister fills rapidly with blood. 4. If any of these occur while in the hospital tell a nurse immediately. Addendum: 06/17/21 at 1448 by Ananya Gonzáles RN Amended: Links added.
--- NOTE | 2021-06-17 16:20 | NUR ---
pt Dc to home with carmen. pt is A & O x4 and in n o apparent distress. Pt verbalizes understandings of all DC orders and the importance of following up with wound care. Pt educated on home wound vac and trouble shooting. pt able to teach back instructions on no weight bearing on foot and how to get around. pt's wound vac dressing reinforced by wound care Rimma today before pt is Dc. Pt going home with a PICC line for IV antibiotics, kalie will follow up with pt to educate about IV meds. pt packed and dressed with help of carmen and wheeled to the front where he was taken home by carmen.
== END 2021-06-17 16:20 | disposition home or self-care (01) | DRG 464 ==
LOC: ER 04:28 → ED HOLD 07:53 → EDBEDREQ 15:34 → SUR 3N 16:20
PROVIDERS: ADMIT Family Medicine; ATTEND Family Medicine
PROC: 0JBQ0ZZ Excision of Right Foot Subcutaneous Tissue and Fascia, Open Approach (ICD-10-PCS; principal; 2021-06-15 07:31)
PROC: 02HV33Z Insertion of Infusion Device into Superior Vena Cava, Percutaneous Approach (ICD-10-PCS; 2021-06-16)
PROC: B548ZZA Ultrasonography of Superior Vena Cava, Guidance (ICD-10-PCS; 2021-06-16)
DX: T87.81 Dehiscence of amputation stump (principal); L02.611 Cutaneous abscess of right foot; L03.115 Cellulitis of right lower limb; M86.8X7 Other osteomyelitis, ankle and foot; E66.9 Obesity, unspecified; F12.90 Cannabis use, unspecified, uncomplicated; I10 Essential (primary) hypertension; B95.62 Methicillin resistant Staphylococcus aureus infection as the cause of diseases classified elsewhere; L97.512 Non-pressure chronic ulcer of other part of right foot with fat layer exposed; G62.9 Polyneuropathy, unspecified; Y83.5 Amputation of limb(s) as the cause of abnormal reaction of the patient, or of later complication, without mention of misadventure at the time of the procedure; Z20.822 Contact with and (suspected) exposure to COVID-19; Z82.49 Family history of ischemic heart disease and other diseases of the circulatory system; Z83.3 Family history of diabetes mellitus; Y92.89 Other specified places as the place of occurrence of the external cause; Z68.33 Body mass index [BMI] 33.0-33.9, adult
CPT/HCPCS: 36573; 96365; 96366; 96368; 99285; Z7506; 36415; 73630; 80053; 80061; 80202; 81003; 82607; 82948; 83036; 83605; 83735; 84100; 84145; 84443; 85025; 86140; 87040; 87070; 87075; 87077; 87081; 87186; 87635; A4618; A7000; G0378; J0330; J1644; J2001; J2250; J2270; J2405; J2543; J2704; J3010; J3370; J3490; J7030; J7120